=== PATIENT | male | born 1960 | race Caucasian/White ===

== ENCOUNTER → 2023-10-16 14:59 | Outpatient (AMB) | payer OTHER, SELFPAY ==
--- NOTE | 2023-10-16 15:01 | MHC.PC.OV ---
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 Training And Development Specialist Required: No Accompanied by: Self / Same As Patient Allergies bee pollen [BEE STINGS] Allergy (Intermediate, Verified 10/16/23 15:38) SWELLING Sulfa (Sulfonamide Antibiotics) [SULFA (SULFONAMIDE ANTIBIOTICS)] Allergy (Intermediate, Verified 10/16/23 15:38) rash Medication List - Last Reconciled 10/16/23 by KELSI SparrowP- aspirin 81 mg PO DAILY Tobacco use date assessed: 10/16/23 Dental Screening Dental Screen Date: 10/16/23 Did you have a dental visit in the last 12 months?: Yes Did you have a dental problem in the last 6 months where you did not have access to dental care?: No Was dental information given to patient?: Patient has dentist HPI HPI Comments History of Present Illness Details 63-year-old male with GERD, hyperlipidemia, vitamin-D deficiency, CAD, seasonal allergies Surgery: 2015 open heart surgery Health Maintenance: Specialists: GI Here today as a new patient Limited medical records Has had esophageal dilation x 2 in the past 5 years Was ff'd by [facility] in the past At times when he eats, he feels like it sits in the LUQ/eqpigastric area and then cannot eat for about 1 day as he doesnt know if its going to come up. He can then have diarrhea. In [address] [facility] for intestinal perf had colostomy which was reversed around 2254-1969. Taking TUMS and other OTC to help. At times feels so hungry in the morning that he vomits up bile. Denies any blood in his stool and or his vomit. Dry hacking cough that occurs in change in climates; always there first thing in the AM. Has not had any recent PFTs Does have seasonal allergies. Can not tolerate antihistamines as they make his cough worse as it dries his throat out. He reports that he had some type of valvular surgery and repair in 2014. I do not have the records on this. He was on a beta-hellen in the past but stopped during the pandemic as he ran out of refills. He is tachycardic today. He is asymptomatic. He thinks that he was on metoprolol ER 25 mg p.o. daily. He has not currently active with the order fulfillment specialist as his order fulfillment specialist retired however he is open to a referral. 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 1. Little interest or pleasure in doing things: not at all 2. Feeling down, depressed, or hopeless: not at all 3. Trouble falling or staying asleep, or sleeping too much: not at all 4. Feeling tired or having little energy: not at all 5. Poor appetite or overeating: not at all 6. Feeling bad about yourself - or that you are a failure or have let yourself or your family down: not at all 7. Trouble concentrating on things, such as reading the newspaper or watching television: not at all 8. Moving or speaking so slowly that other people could have noticed. Or the opposite - being so fidgety or restless that you have been moving around a lot more than usual: not at all 9. Thoughts that you would be better off or of hurting yourself in some way: not at all Total score: 0 Depression Screening Interpretation: Negative Depression Screening Done: Yes 03265 - PHQ-9 Billing: Yes Source: Developed by Drs. Juan M Cano, Jasmyn Crump, Ga Cabral and colleagues, with an educational cesar from [employer]. Thrive Questionnaire Date Thrive assessed: 10/16/23 I am a: Patient What is your living situation today?: I have a steady place to live Within the past 12 months, did the food you bought not last and you didn't have the money to get more?: Never true Within the past 12 months, did you worry whether your food would run out before you got money to buy more?: Never true Do you have trouble paying for medicines?: No Do you have trouble getting transportation to medical appointments?: No Do you have trouble paying your heating and electricity bill?: No Do you have trouble taking care of your child, family member or friend?: No Do you have trouble with day-to-day activities such as bathing, preparing meals, shopping, managing finances, etc.?: No Are you currently unemployed and looking for a job?: No Are you interested in more education?: No Please select the resources that you would like help with: None Currently or been in a relationship where the following occur: no concerns reported THRIVE Score: 0 AUDIT C Alcohol Use Questionnaire (AUDIT-C) 1. How often do you have a drink containing alcohol?: Never 3. How often do you have six or more drinks on one occasion?: Never Total Score: 0 Score Reviewed/Action Taken: Yes MATHEW-7 AMB Questionnaire MATHEW-7 Date MATHEW - 7 assessed: 10/16/23 Feeling nervous, anxious, or on edge: 0 = Not at all Not being able to stop or control worryin = Not at all Worrying too much about different things: 0 = Not at all Trouble relaxin = Not at all Being so restless that it is hard to sit still: 0 = Not at all Becoming easily annoyed or irritable: 0 = Not at all Feeling afraid as if something awful might happen: 0 = Not at all Total MATHEW-7 score (0-4 normal; 5-9 mild; 10-14 moderate; 15-21 severe): 0 Source: Developed by Drs. Juan M Cano, Jasmyn Crump, Ga Cabral and colleagues, with an educational cesar from [employer]. MATHEW-7 Assessment Billing MATHEW-7 Assessment Tool: MATHEW-7 Assessment 24717 Review of Systems Const All systems reviewed & are unremarkable except as noted in HPI and below Physical exam (Primary Care) Vital Signs: Last Vital Signs Temp 97.8 F 10/16/23 15:05 Pulse 119 H 10/16/23 15:05 Resp 14 10/16/23 15:05 BP 136/90 H 10/16/23 15:05 Pulse Ox 99 10/16/23 15:05 Oxygen Delivery Method Room Air 10/16/23 15:05 BMI result Body Mass Index 22.6 Tobacco/Smoking Status: Tobacco use Status Tobacco use date assessed 10/16/23 10/16/23 15:16 Patient Tobacco Use Status Never used Tobacco 10/16/23 15:16 e-Cigarette/Vaping Use Never Used 10/16/23 15:16 PHQ-9: PHQ-9 Score PHQ-9: Total score 0 10/16/23 15:20 Depression Screening Interpretation: Negative Thrive Assessment: Date of Thrive Assessment Date Thrive assessed 10/16/23 10/16/23 15:22 Currently or been in a relationship where the following occur: no concerns reported Const Other: Awake alert NAD Sclera and conjunctiva clear bilat Nares patent, turbinates edematous and pale on the left, TM intact and clear bilat MMM, pharynx WNL Tachycardic, normal rhythm LS CTAB , occasional dry hacking cough without respiratory distress Abdominal exam difficult as he is quite ticklish, normoactive bowel sounds, well-healed surgical incisions. Bilateral lower extremities no edema, hairless, decreased pedal pulses bilat Assessment and Plan Assessment & Plan (1) Esophageal achalasia: Comment: Refer back to [facility] for management. Code(s): K22.0 - Achalasia of cardia (2) Disorder of endocardium and heart valve: Comment: We will need to obtain the records for further information. He was previously followed by [facility]. I will refer him back there. I will restart him on his beta-hellen metoprolol succinate ER 25 mg p.o. daily. Code(s): I51.9 - Heart disease, unspecified; I38 - Endocarditis, valve unspecified (3) Vitamin D deficiency: Comment: Check labs. Not currently on any medications. Code(s): E55.9 - Vitamin D deficiency, unspecified (4) Screening for prostate cancer: Code(s): Z12.5 - Encounter for screening for malignant neoplasm of prostate (5) GERD (gastroesophageal reflux disease): Comment: Refer to GI. Check stool for H pylori. Code(s): K21.9 - Gastro-esophageal reflux disease without esophagitis Qualifiers: Esophagitis presence: without esophagitis Qualified Code(s): K21.9 - Gastro-esophageal reflux disease without esophagitis (6) Seasonal allergies: Comment: Likely the cause for his cough. Start Flonase. Can not tolerate antihistamines as they are too drying. Code(s): J30.2 - Other seasonal allergic rhinitis Plan: This note is constructed using voice recognition software. While every effort has been made to ensure accuracy in director commercial sales, still errors may have been included Sometimes, these errors may affect the content or meaning of the given sentence . Total time spent caring for the patient today was 50 minutes. This includes time spent before the visit reviewing the chart, time spent during the visit, and time spent after the visit on documentation Orders: Orders Hemoglobin A1c Today E55.9 - Vitamin D deficiency, unspecified, Z12.5 - Encounter for screening for malignant neoplasm of prostate Microalbumin, Random (w Creat) Today E55.9 - Vitamin D deficiency, unspecified, Z12.5 - Encounter for screening for malignant neoplasm of prostate TSH reflex Free T4 Today E55.9 - Vitamin D deficiency, unspecified, Z12.5 - Encounter for screening for malignant neoplasm of prostate Comprehensive [place]. Panel Fast Today E55.9 - Vitamin D deficiency, unspecified, Z12.5 - Encounter for screening for malignant neoplasm of prostate PSA, Ultra Sensitive Today E55.9 - Vitamin D deficiency, unspecified, Z12.5 - Encounter for screening for malignant neoplasm of prostate H pylori Ag Stool Today K21.9 - Gastro-esophageal reflux disease without esophagitis Lipase Today K21.9 - Gastro-esophageal reflux disease without esophagitis Vitamin D 1,25 dihydroxy Today E55.9 - Vitamin D deficiency, unspecified, Z12.5 - Encounter for screening for malignant neoplasm of prostate Lipid Panel Today E55.9 - Vitamin D deficiency, unspecified, Z12.5 - Encounter for screening for malignant neoplasm of prostate Amylase Today K21.9 - Gastro-esophageal reflux disease without esophagitis Referrals Gastroenterology Referral K22.0 - Achalasia of cardia Cardiology Referral I38 - Endocarditis, valve unspecified, I51.9 - Heart disease, unspecified Medications: New fluticasone propionate 50 mcg/actuation administer into each nostril 1 spray intranasal BID 16 grams 0RF metoprolol succinate ER 25 mg PO DAILY 90 tabs 0RF Discontinued pantoprazole Discontinued Reason: Patient no longer taking 40 mg PO DAILY 30 tabs 4RF Patient Instructions: The plan will be to obtain her records and review them. Please obtain fasting labs before her next visit. I would like to see you back in the office in about 2 weeks to follow up on the labs, tachycardia, and your cough. Please return to the office sooner should you need anything. Coding Level of Care Code New Pt Level 5 (92680) Diagnoses Esophageal achalasia K22.0 Disorder of endocardium and heart valve I51.9; I38 Vitamin D deficiency E55.9 Screening for prostate cancer Z12.5 Gastroesophageal reflux disease without esophagitis K21.9 Esophagitis presence: without esophagitis Seasonal allergies J30.2 Additional Codes MATHEW-7 Assessment Billing - MATHEW-7 Assessment Tool: MATHEW-7 Assessment 06255 ([id number])
[2023-10-16 15:05] VITALS: BP 136/90; PULSE 119; RESP 14; TEMP 36.6; O2SAT 99; BMI 22.6
== END ==
PROVIDERS: PCP Internal Medicine; Visit Provider Nurse Practitioner Family
DX: K22.0 Achalasia of cardia (principal); I51.9 Heart disease, unspecified; I38 Endocarditis, valve unspecified; E55.9 Vitamin D deficiency, unspecified; Z12.5 Encounter for screening for malignant neoplasm of prostate; K21.9 Gastro-esophageal reflux disease without esophagitis; J30.2 Other seasonal allergic rhinitis
CPT/HCPCS: 99205

== ENCOUNTER 2023-12-15 07:07 | Outpatient (REF) | payer OTHER, SELFPAY ==
[2023-12-15 10:37] LABS: Estimated Average Glucose 88 mg/dL; Hemoglobin A1c % 4.7 % (<6.0)
[2023-12-15 10:40] LABS: Alanine Aminotransferase 26 U/L (0-40); Alkaline Phosphatase 64 U/L (39-117); Amylase 41 U/L (28-100); Anion Gap 12 (12-20); Aspartate Amino Transferase 28 U/L (5-37); Bilirubin Total 0.8 mg/dL (0.0-1.0); Blood Urea Nitrogen 5 mg/dL (9-16); Calcium 9.3 mg/dL (8.4-10.2); Carbon Dioxide 26 mmol/L (22-29); Chloride 98 mmol/L (96-108); Cholesterol 166 mg/dL (<200); Estimated Glomerular Filt Rate > 60; Glucose Fasting 120 mg/dL (60-99); HDL Cholesterol 60 mg/dL (>40); LDL Cholesterol Calculated 80 mg/dL (<100); Lipase 19 U/L (8-78); Sodium 132 mmol/L (135-145); Total Protein 6.7 g/dL (6.5-8.0); Triglycerides 133 mg/dL (<150)
[2023-12-15 11:16] LABS: Creatinine Urine 31.21 mg/dL; Microalbumin Urine < 5.0 mg/L
[2023-12-19 10:10] LABS: VITAMIN D (1,25 OH) D3 43 pg/mL; Vit D (1,25-Dihydroxy) Total 43 pg/mL (18-72); Vitamin D (1,25 OH) D2 <8 pg/mL
[2023-12-23 18:42] LABS: PSA, Ultra Sensitive 0.38 ng/mL
== END 2023-12-15 07:08 | disposition home or self-care (01) ==
LOC: HO.HMGCLDS 07:07
PROVIDERS: PCP Nurse Practitioner Family; Visit Provider Nurse Practitioner Family
DX: E55.9 Vitamin D deficiency, unspecified (principal); Z12.5 Encounter for screening for malignant neoplasm of prostate; K21.9 Gastro-esophageal reflux disease without esophagitis; Z13.1 Encounter for screening for diabetes mellitus
CPT/HCPCS: 36415; 80053; 80061; 82043; 82150; 82570; 82652; 83036; 83690; 84153; 84443

== ENCOUNTER 2024-01-14 10:48 | Day surgery (SDC) | payer OTHER, SELFPAY ==
[2024-01-12 15:42] VITALS: BMI 22.0
--- NOTE | 2024-01-13 09:24 | HO.ANESPROP2 ---
Documented by User: Jenny Kothari NP 01/13/24 09:30 HPI - Anesthesia Eval Consult details Narrative: 63yo M for Upper Endoscopy and Colonoscopy s/p MVR 2014 hx afib/flutter without cardiology f/u since ~ 2019. Recent PCP eval restarted b-hellen for tachy, but otherwise pt asymptomatic PMFSH Active Problems Active Problems: All Active Problems Hyponatremia (Acute) Seasonal allergies (Acute) GERD (gastroesophageal reflux disease) (Acute) Screening for prostate cancer (Acute) Vitamin D deficiency (Acute) Disorder of endocardium and heart valve (Acute) Esophageal achalasia (Acute) Past Medical History Medical History History of diverticulitis GERD (gastroesophageal reflux disease) Achalasia of cardia Seasonal allergies History of tachycardia Cough PND (post-nasal drip) Hx of valvular heart disease GI disease Family History Family History Father Diabetes Mother Thyroid disease Surgical History Surgical History History of esophagogastroduodenoscopy (EGD) Hx of colonoscopy History of colostomy reversal (~2008) History of colon surgery History of open heart surgery Social History Social History Housing: House Are you a primary care director rn to a significant other at home: No Do you presently have visiting nurse or other home services: No Patient Tobacco Use Status: Never used Tobacco e-Cigarette/Vaping Use: Never Used Use of substances other than those prescribed or required for medical reasons: No Have you been hit, kicked, punched, or otherwise hurt by someone within the past year? 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[employer] Cognitive needs: No Hearing needs: No Vision needs: No Meds Allergies Allergy/AdvReac Type Severity Reaction Status Date / Time bee pollen [BEE STINGS] Allergy Intermediate SWELLING, Verified 01/14/24 11:18 rash Sulfa (Sulfonamide Allergy Intermediate rash Verified 01/14/24 11:18 Antibiotics) [SULFA (SULFONAMIDE ANTIBIOTICS)] Home Medications ?Medication ?Instructions ?Recorded ?Confirmed ?Last Taken ?Type aspirin 81 mg capsule 81 mg PO DAILY 10/16/23 01/14/24 01/13/24 History Exam Height,Weight and Vital Signs: Height 5 ft 8 in Weight 65.771 kg Pertinent Lab Results Pertinent Lab Results: Laboratory Tests 06/29/19 12/15/23 09:58 07:15 WBC 4.4 L Hgb 14.3 Hct 40.7 L Plt Count 217 Sodium 132 L Potassium 4.0 Chloride 98 Carbon Dioxide 26 BUN 5 L Creatinine 0.81 Assessment and Plan Assessment Anesthesia Assessment: Chart Reviewed Documented by User: Maryellen Fuentes MD 01/14/24 14:06 PMFSH Past Medical History Medical History History of diverticulitis GERD (gastroesophageal reflux disease) Achalasia of cardia Seasonal allergies History of tachycardia Cough PND (post-nasal drip) Hx of valvular heart disease GI disease Family History Family History Father Diabetes Mother Thyroid disease Family history of problems with anesthesia: No Surgical History Surgical History History of esophagogastroduodenoscopy (EGD) Hx of colonoscopy History of colostomy reversal (~2008) History of colon surgery History of open heart surgery History of Problems with Anesthesia: No Social History Social History Housing: House Are you a primary care director rn to a significant other at home: No Do you presently have visiting nurse or other home services: No Patient Tobacco Use Status: Never used Tobacco e-Cigarette/Vaping Use: Never Used Use of substances other than those prescribed or required for medical reasons: No Have you been hit, kicked, punched, or otherwise hurt by someone within the past year? 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 needs: No Hearing needs: No Vision needs: No Meds Allergies Allergy/AdvReac Type Severity Reaction Status Date / Time bee pollen [BEE STINGS] Allergy Intermediate SWELLING, Verified 01/14/24 11:18 rash Sulfa (Sulfonamide Allergy Intermediate rash Verified 01/14/24 11:18 Antibiotics) [SULFA (SULFONAMIDE ANTIBIOTICS)] Home Medications ?Medication ?Instructions ?Recorded ?Confirmed ?Last Taken ?Type aspirin 81 mg capsule 81 mg PO DAILY 10/16/23 01/14/24 01/13/24 History Exam Airway Mallampati Class: II TM Dist: >3cm Neck ROM: Limited Heart: afib Lungs: cta Assessment and Plan Assessment Anesthesia Assessment: Anesthesia Plan Discussed Final Anesthetic Review Family History of Problems with Anesthesia: No History of Problems with Anesthesia: No NPO: Yes ASA Class: III Final Preanesthetic Review: No Changes in Pt Med Stat, Meds/Allgs Chart Reviewed, Consent Obtained/Reviewed and Anes Risks/Benef Reviewed Patient Risk: Intermediate Procedure Risk: Low Anesthetic Plan Anesthetic Plan: MAC: Disposition: Standard PACU
[2024-01-14 11:26] VITALS: BMI 22.0
[2024-01-14 11:52] VITALS: BP 133/98; PULSE 100; RESP 14; TEMP 36.3; O2SAT 98
[2024-01-14] MEDS: Lactated Ringers 1,000 ML 100 ML IVCONT (11:55)
--- NOTE | 2024-01-14 13:56 | MHC.SHP ---
Pre-Procedural Eval Section A - 24 Hr Update-Section A only Date of Service: 01/14/24 The patient is an INPATIENT: No Changes since office visit: No Cold of Flu in the past 2 weeks, No New Medical Problems, No Changes in Medication and No Patient answered all questions The patient has been examined within 24 hours of the surgical procedure. The History & Physical has been completed within 30 days and I have reviewed it.: Yes Section B - Complete if H&P > 30 days Chief Complaint: dysphagia,diarrhea,lower quadrant pain Allergies: Allergies Allergy/AdvReac Type Severity Reaction Status Date / Time bee pollen [BEE STINGS] Allergy Intermediate SWELLING, Verified 01/14/24 11:18 rash Sulfa (Sulfonamide Allergy Intermediate rash Verified 01/14/24 11:18 Antibiotics) [SULFA (SULFONAMIDE ANTIBIOTICS)] Plan I have reviewed the history and physical and performed a pertinent physical examination on my patient. No changes have occurred unless specified. Time Spent With Patient Time: Total time managing care of this patient today ____ minutes.
[2024-01-14 15:00] VITALS: BP 83/51; PULSE 81; RESP 18; TEMP 36.2; O2SAT 98
[2024-01-14 15:05] VITALS: BP 121/69; PULSE 88; RESP 15; O2SAT 99
[2024-01-14 15:10] VITALS: BP 143/77; PULSE 86; RESP 14; O2SAT 99
[2024-01-14 15:16] VITALS: BP 124/78; PULSE 85; RESP 16; TEMP 36.3; O2SAT 99
--- NOTE | 2024-01-14 15:23 | OP_ITS ---
DATE OF SERVICE: 01/14/2024 SURGEON: Maulik Portillo MD INDICATIONS: 1. Dysphagia. 2. Diarrhea. PREOPERATIVE DIAGNOSIS: POSTOPERATIVE DIAGNOSIS: PROCEDURE PERFORMED: 1. Upper endoscopy with biopsy. 2. Colonoscopy to the terminal ileum with biopsy. ESTIMATED BLOOD LOSS: COMPLICATIONS: ANESTHESIA: Monitored anesthesia care. ASSISTANTS: SPECIMENS: DESCRIPTION OF PROCEDURE: A history and physical was performed. The risks and benefits of the procedure were explained to the patient and informed consent was obtained. The patient was placed in the left lateral decubitus position. The Olympus video gastroscope was introduced into the esophagus, stomach, and duodenum. Examination was performed and the scope was removed. He was repositioned for colonoscopy. A digital rectal exam was performed and was found to be normal. The Olympus pediatric video colonoscope was introduced into the rectum and advanced to the cecum. The cecum was identified by transillumination, palpation, and identification of ileocecal valve. Examination was performed and the scope was removed. He tolerated the procedure well and was returned to recovery area in stable condition. FINDINGS: Upper endoscopy, esophagus: The esophagus appeared to show normal mucosa. The EG junction was present at about 39 cm from the gums. No stricture was identified. There was a small diverticulum at the level of the EG junction. The scope easily passed into the stomach. Biopsies were obtained from the EG junction and midesophagus. Stomach: The stomach showed scattered erythema, mainly in the antrum consistent with gastritis. Antral biopsies were obtained. Duodenum: The bulb and 2nd portion were normal. Duodenal biopsies were obtained from the 2nd portion. Colonoscopy: The terminal ileum was normal. Visualized colonic mucosa was normal. Two polyps were identified and removed with biopsy forceps. Both measured less than 5 mm. The 1st was located in the ascending colon. The 2nd was located at about 15 cm in the area of the anastomosis from his prior surgery. There was some stool in the right colon that was liquid, limiting the sensitivity examination and short-term followup of 2 to 3 years, may be appropriate as small polyps in the right colon may have been missed. Random biopsies were obtained from the sigmoid at about 20 cm. The anastomosis was widely patent. Retroflexed examination showed some small internal hemorrhoids. IMPRESSION: 1. Gastritis. 2. Colon polyps. RECOMMENDATION: Follow up the biopsy results. MD TOI Longoria/HILLARY / [id number]
== END 2024-01-14 15:40 | disposition home or self-care (01) ==
PROVIDERS: PCP Nurse Practitioner Family; Visit Provider Internal Medicine Gastroenterology
PROC: (CPT 45380; principal; 2024-01-14 14:00)
DX: R19.7 Diarrhea, unspecified (principal); R10.32 Left lower quadrant pain; Z98.0 Intestinal bypass and anastomosis status; D12.2 Benign neoplasm of ascending colon; D12.7 Benign neoplasm of rectosigmoid junction; K64.8 Other hemorrhoids; R13.19 Other dysphagia; K21.9 Gastro-esophageal reflux disease without esophagitis; K20.80 Other esophagitis without bleeding; K29.80 Duodenitis without bleeding; K29.70 Gastritis, unspecified, without bleeding; K22.5 Diverticulum of esophagus, acquired; Z95.2 Presence of prosthetic heart valve; Z79.82 Long term (current) use of aspirin; Z79.899 Other long term (current) drug therapy; Z88.2 Allergy status to sulfonamides; Z98.890 Other specified postprocedural states
CPT/HCPCS: 45380; 43239; 88305; 88313; 88342; J2704

== ENCOUNTER 2024-01-28 12:44 | Outpatient (REF) | payer OTHER, SELFPAY ==
[2024-01-28 16:14] LABS: Anion Gap 10 (12-20); Carbon Dioxide 30 mmol/L (22-29); Chloride 95 mmol/L (96-108); Sodium 131 mmol/L (135-145)
== END 2024-01-28 12:45 | disposition home or self-care (01) ==
LOC: HO.HMGCLDS 12:44
PROVIDERS: PCP Nurse Practitioner Family; Visit Provider Nurse Practitioner Family
DX: E87.1 Hypo-osmolality and hyponatremia (principal)
CPT/HCPCS: 36415; 80051

== ENCOUNTER 2025-01-05 11:54 | Outpatient (AMB) | payer OTHER, SELFPAY ==
--- OUTSIDE RECORDS SUMMARY | 2024-01-14 09:00 | XMS_ITS ---
Author Organization [facility] Address [address] [place] [address] Care Team Providers Care Specification Consultant Name Role Phone Char Chase Primary Care Provider Maulik Kaur Jr REASON FOR VISIT dysphagia,diarrhea, LLQ pain Problems Problem Type SNOMED Code ICD Code Onset Dates Problem Status W/U Status Risk Notes Problem Gastritis (3935007) Gastritis (K29.70) Active confirmed Encounters Encounter Location Date Provider Diagnosis [facility] Outpatient [address] [place] [id number] 01/14/2024 Maulik Portillo Jr Gastritis K29.70 ; Colon polyps K63.5 ; Diarrhea R19.7 and Other dysphagia R13.19 Assessments Encounter Date Diagnosis (ICD Code) Assessment Notes Treatment Notes Treatment Clinical Notes Section Notes 01/14/2024 Gastritis (ICD-10 - K29.70) 01/14/2024 Colon polyps (ICD-10 - K63.5) 01/14/2024 Diarrhea (ICD-10 - R19.7) 01/14/2024 Other dysphagia (ICD-10 - R13.19) Plan Of Treatment Next Appt Details Provider Name:Maulik ponce Jr, 02/17/2025 03:15:00 PM, [address], [address], [place], [address], Progress Notes * RAHEEM SALAMANCADOB:1960 (64 yo M)Acc No.[id number]:01/14/2024 EGD and COL/MAC Patient: RAHEEM BRANCH Provider: Brendon Portillo MD :1960 A ge:63 Y S ex:Male Date:01/14/2024 Address:[address] [place] [address], [id number] Pcp:Char Chase Subjective: * Chief Complaints: * 1 . dysphagia,diarrhea, LLQ pain. * Medical History: Objective: * Vitals: Assessment: * Assessment: 1. G astritis - K29.70 (Primary) 2 . C olon polyps - K63.5 3 . D iarrhea - R19.7 4 . O ther dysphagia - R13.19 Plan: * Treatment: * Procedure Codes: 4 5380 COLONOSCOPY AND BIOPSY, [address]013 UPPER GI ENDOSCOPY, BIOPSY * * The named appointment provid er may or may not be the originator of this progress note, and it is not deemed complete until electronically signed by the appointment provider. Sign off status: Pending * Provider: Brendon Portillo MD Date: 01/14/2024 Generated for Holly chappell/Yokasta/Allynitting on: 01/05/2025 01:04 PM EDT
--- NOTE | 2025-01-05 12:03 | MHC.PC.OV ---
Vital Signs 01/05/25 12:09 Height 5 ft 9 in Weight 158 lb BMI 23.3 BP 118/68 Blood Pressure Location Rt brachial Position Sitting Respiration 12 Pulse 70 Pulse Source Pulse Oximeter Temp 97.1 F Temp Source Oral Pulse Oximetry (%) 99 Oxygen Delivery Method Room Air Intake Visit Reasons: Annual PE Intake Note: CPE. Bath Steward Required: No Allergies bee pollen (BEE STINGS) Allergy (Intermediate, Verified 01/05/25 12:26) SWELLING, rash Sulfa (Sulfonamide Antibiotics) (SULFA (SULFONAMIDE ANTIBIOTICS)) Allergy (Intermediate, Verified 01/05/25 12:26) rash Medication List - Last Reconciled 01/05/25 by TANVIR Sparrow- aspirin 81 mg PO DAILY fluticasone propionate 50 mcg/actuation 1 spray intranasal BID metoprolol succinate ER 25 mg PO DAILY omeprazole 20 mg PO DAILY Tobacco use date assessed: 10/16/23 Dental Screening Dental Screen Date: 01/05/25 Did you have a dental visit in the last 12 months?: Yes Did you have a dental problem in the last 6 months where you did not have access to dental care?: No Was dental information given to patient?: Patient has dentist HPI HPI Comments History of Present Illness Details 64-year-old male with GERD, hyperlipidemia, vitamin-D deficiency, CAD, seasonal allergies, gastritis, colonic polyps Surgery: 2015 open heart surgery, colon surgery Health Maintenance: colon/egd 01/15/24 active esophagitis, tubular adenoma, Chronic inactive duodenitis Dr Portillo Tdap declined Wears Cheaters, not UTD on eye exam; declined referral today Specialists: GI Cards Limited medical records - awaiting previous PCP and Cards records History of Present Illness - The patient is a 64-year-old male presenting with a complete physical examination and ongoing gastrointestinal issues. - Lifetime history of gastrointestinal issues; presented initially as a child. - Recent symptoms peak in the mornings with sensation of fullness, gagging, and repeated coughing. - Upper and lower gastrointestinal workup show esophagitis and duodenal inflammation. - Managed symptoms with omeprazole; no current reflux or heartburn. - Environmental changes provoke cough. - Drafter Landscape supports ongoing treatment with omeprazole due to upper GI findings. - Appt this month w/ GI - No current appt w/ Cards. Needs new referral. Cont on BB Review of Systems - Gastrointestinal: Reports ongoing gastrointestinal issues, including diarrhea post-ingestion and esophagitis symptoms. Denies current heartburn. - Respiratory: Reports morning cough and gagging; cough with environmental changes. - General: Denies major changes, notes moderate weight gain observed. Physical Exam General: Well developed, well nourished, in no acute distress. Appears stated age. Head: Normocephalic, atraumatic. Eyes: Pupils are equal, round and reactive to light and accommodation. Conjunctivae are clear. Vision grossly normal. Ears: TMs clear AU, EACS WNL Nose: Patent, without discharge. Neck: Supple, no adenopathy or thyromegaly. Breast: Edu on SBE Lungs: Clear to auscultation bilaterally. No rales, rhonchi or wheeze noted. Good air flow in all egan. Heart: Regular rate and rhythm. No murmurs, click, rubs or gallops are noted. Abdomen: Bowel sounds present in all quadrants. The abdomen is soft, nontender, with no masses or organomegaly noted. well-healed surgical incisions. : Deferred. Reviewed JORDON & recommendations Pulses: Peripheral pulses are equal and palpable bilaterally. Bilateral lower extremities no edema, hairless, decreased pedal pulses bilat Extremities: No clubbing, cyanosis nor edema is noted. Neurologic: Gait and station normal. Cranial Nerves 2-12 intact. Motor strength grossly symmetrical and intact. No sensory loss. Balance normal. Skin: No rashes, ulcers, or lesions noted. Turgor is good. Skin color is good. Hair and nails are without abnormalities. Psych: Normal eye contact, affect and mood appropriate, and normal interactions. Patient is alert and appropriate to context. Assessment and Plan 1. Gastroesophageal Reflux Disease (GERD) w/ esophagitis. - Continue omeprazole & fu with GI 2. Coronary Artery Disease (CAD) - Manage with aspirin and metoprolol. - refer to [facility] Cards - asked to get old cards records Declined Tdap Labs ordered RTO 1 year CPE sooner prn Consent Patient was informed and verbally consented to the use of an ambient scribe for clinic note documentation during this visit. An additional 20 minutes was spent addressing the problem(s) noted at todays visit. This includes time spent before the visit reviewing the chart, time spent during the visit, and time spent after the visit on documentation reviewing laboratory results, diagnostic imaging, medications, performing a medically necessary evaluation, counseling on diagnoses, care coordination, ordering appropriate tests, ordering appropriate medications, review of tests performed by other providers, reporting test results with the patient, communication with other healthcare providers. [facility] Medical History (Updated 01/05/25 @ 12:51 by Char Chase [facility]) Achalasia of cardia Cough GERD (gastroesophageal reflux disease) GI disease History of diverticulitis History of tachycardia Hx of valvular heart disease PND (post-nasal drip) Seasonal allergies Surgical History (Updated 01/05/25 @ 12:27 by Char Chase [facility]) History of colon surgery History of colostomy reversal (~2008) History of esophagogastroduodenoscopy (EGD) History of open heart surgery Hx of colonoscopy (~12/2023) Family History Father Diabetes Mother Thyroid disease Social History Housing: House Are you a primary home health care provider to a significant other at home: No Do you presently have visiting nurse or other home services: No Patient Tobacco Use Status: Never used Tobacco e-Cigarette/Vaping Use: Never Used service: No Current occupational status: employed 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 1. Little interest or pleasure in doing things: not at all 2. Feeling down, depressed, or hopeless: not at all 3. Trouble falling or staying asleep, or sleeping too much: not at all 4. Feeling tired or having little energy: not at all 5. Poor appetite or overeating: not at all 6. Feeling bad about yourself - or that you are a failure or have let yourself or your family down: not at all 7. Trouble concentrating on things, such as reading the newspaper or watching television: not at all 8. Moving or speaking so slowly that other people could have noticed. Or the opposite - being so fidgety or restless that you have been moving around a lot more than usual: not at all 9. Thoughts that you would be better off or of hurting yourself in some way: not at all Total score: 0 Depression Screening Interpretation: Negative Depression Screening Done: Yes 70030 - PHQ-9 Billing: Yes Source: Developed by Drs. Juan M Cano, Jasmyn Crump, Ga Cabral and colleagues, with an educational cesar from [employer]. Thrive Questionnaire Date Thrive assessed: 01/05/25 I am a: Patient What is your living situation today?: I have a steady place to live Within the past 12 months, did the food you bought not last and you didn't have the money to get more?: I choose not to answer this question Within the past 12 months, did you worry whether your food would run out before you got money to buy more?: I choose not to answer this question Do you have trouble paying for medicines?: I choose not to answer this question Do you have trouble getting transportation to medical appointments?: I choose not to answer this question Do you have trouble paying your heating and electricity bill?: I choose not to answer this question Do you have trouble taking care of your child, family member or friend?: I choose not to answer this question Do you have trouble with day-to-day activities such as bathing, preparing meals, shopping, managing finances, etc.?: I choose not to answer this question Are you currently unemployed and looking for a job?: I choose not to answer this question Are you interested in more education?: I choose not to answer this question Please select the resources that you would like help with: None Currently or been in a relationship where the following occur: I choose not to answer THRIVE Score: 0 AUDIT C Alcohol Use Questionnaire (AUDIT-C) 1. How often do you have a drink containing alcohol?: Never 3. How often do you have six or more drinks on one occasion?: Never Total Score: 0 Score Reviewed/Action Taken: Yes MATHEW-7 AMB Questionnaire MATHEW-7 Date MATHEW - 7 assessed: 01/05/25 Feeling nervous, anxious, or on edge: 0 = Not at all Not being able to stop or control worryin = Not at all Worrying too much about different things: 0 = Not at all Trouble relaxin = Not at all Being so restless that it is hard to sit still: 0 = Not at all Becoming easily annoyed or irritable: 0 = Not at all Feeling afraid as if something awful might happen: 0 = Not at all Total MATHEW-7 score (0-4 normal; 5-9 mild; 10-14 moderate; 15-21 severe): 0 Source: Developed by Drs. Juan M Cano, Jasmyn Crump, Ga Cabral and colleagues, with an educational cesar from [employer]. MATHEW-7 Assessment Billing MATHEW-7 Assessment Tool: MATHEW-7 Assessment 69859 Physical exam (Primary Care) Vital Signs: Last Vital Signs Temp 97.1 F 01/05/25 12:09 Pulse 70 01/05/25 12:09 Resp 12 01/05/25 12:09 BP 118/68 01/05/25 12:09 Pulse Ox 99 01/05/25 12:09 Oxygen Delivery Method Room Air 01/05/25 12:09 BMI result Body Mass Index 23.3 Tobacco/Smoking Status: Tobacco use Status Tobacco use date assessed 10/16/23 01/05/25 12:06 Patient Tobacco Use Status Never used Tobacco 01/05/25 12:06 e-Cigarette/Vaping Use Never Used 01/05/25 12:06 PHQ-9: PHQ-9 Score PHQ-9: Total score 0 01/05/25 12:06 Depression Screening Interpretation: Negative Thrive Assessment: Date of Thrive Assessment Date Thrive assessed 01/05/25 01/05/25 12:06 Currently or been in a relationship where the following occur: I choose not to answer Coding Level of Care Code Est Pt Level 3 (43384) Est Pt Prev Care 40-64y(04068) Diagnoses Encounter for general adult medical examination without abnormal findings Z00.00 Disorder of endocardium and heart valve I51.9; I38 Vitamin D deficiency E55.9 Seasonal allergies J30.2 Esophageal achalasia K22.0 Gastroesophageal reflux disease without esophagitis K21.9 Esophagitis presence: without esophagitis Tetanus, diphtheria, and acellular pertussis (Tdap) vaccination declined Z28.21 Laboratory exam ordered as part of routine general medical examination Z00.00 Additional Codes MATHEW-7 Assessment Billing - MATHEW-7 Assessment Tool: MATHEW-7 Assessment 24907 ([id number]) PHQ-9 - 82979 - PHQ-9 Billing: Yes ([id number]) Assessment & Plan Assessment & Plan (1) Encounter for general adult medical examination without abnormal findings: Onset Date: ~01/05/25 Code(s): Z00. - Encounter for general adult medical examination without abnormal findings Category: Medical (2) Disorder of endocardium and heart valve: Comment: We will need to obtain the records for further information. He was previously followed by [facility]. I will refer him back there; on beta-hellen metoprolol succinate ER 25 mg p.o. daily. Code(s): I51.9 - Heart disease, unspecified; I38 - Endocarditis, valve unspecified Category: Medical (3) Vitamin D deficiency: Comment: Check labs. Not currently on any medications. Code(s): E55.9 - Vitamin D deficiency, unspecified Category: Medical (4) Seasonal allergies: Comment: Taking zyrtec QOD; flonase too drying. Likely the cause for his cough. Code(s): J30.2 - Other seasonal allergic rhinitis Category: Medical (5) Esophageal achalasia: Comment: [facility] for management. Code(s): K22.0 - Achalasia of cardia Category: Medical (6) GERD (gastroesophageal reflux disease): Comment: GI Code(s): K21.9 - Gastro-esophageal reflux disease without esophagitis Category: Medical Qualifiers: Esophagitis presence: without esophagitis Qualified Code(s): K21.9 - Gastro-esophageal reflux disease without esophagitis (7) Tetanus, diphtheria, and acellular pertussis (Tdap) vaccination declined: Code(s): Z28.21 - Immunization not carried out because of patient refusal Category: Medical (8) Laboratory exam ordered as part of routine general medical examination: Code(s): Z00.00 - Encounter for general adult medical examination without abnormal findings Category: Medical Plan . Orders: Orders Complete Blood Count no Diff Today Z00.00 - Encounter for general adult medical examination without abnormal findings TSH reflex Free T4 Today Z00.00 - Encounter for general adult medical examination without abnormal findings Vitamin D 25-OH Total Today Z00.00 - Encounter for general adult medical examination without abnormal findings Comprehensive Met. Panel Today Z00.00 - Encounter for general adult medical examination without abnormal findings Lipid Panel Today Z00.00 - Encounter for general adult medical examination without abnormal findings Microalbumin, Random (w Creat) Today Z00.00 - Encounter for general adult medical examination without abnormal findings Prostate Specific Antigen Scr Today Z00.00 - Encounter for general adult medical examination without abnormal findings Vitamin B12 and Folate Today Z00.00 - Encounter for general adult medical examination without abnormal findings Hemoglobin A1c Today Z00.00 - Encounter for general adult medical examination without abnormal findings Referrals Cardiology Referral I38 - Endocarditis, valve unspecified, I51.9 - Heart disease, unspecified Patient Instructions: Health screenings for men You should visit your health care provider regularly, even if you feel healthy. The purpose of these visits is to: Screen for medical issues Assess your risk for future medical problems Encourage a healthy lifestyle Update vaccinations and other preventive care services Help you get to know your provider in case of an illness Information Even if you feel fine, you should still see your provider for regular checkups. These visits can help you avoid problems in the future. For example, the only way to find out if you have high blood pressure is to have it checked regularly. High blood sugar and high cholesterol level also may not have any symptoms in the early stages. Simple blood tests can check for these conditions. There are specific times when you should see your provider or receive specific health screenings. The [place] Preventive Services Task Force publishes a list of recommended screenings. Below are screening guidelines for men ages 40 to 64. BLOOD PRESSURE SCREENING Have your blood pressure checked at least once every year. Watch for blood pressure screenings in your area. Ask your provider if you can stop in to have your blood pressure checked. Ask your provider if you need your blood pressure checked more often if: You have diabetes, heart disease, kidney problems, or are overweight or have certain other health conditions You have a first-degree relative with high blood pressure You are Black Your blood pressure top number is from 120 to 129 mm Hg, or the bottom number is from 70 to 79 mm Hg If the top number is 130 mm Hg or greater or the bottom number is 80 mm Hg or greater, this is considered stage 1 hypertension. Schedule an appointment with your provider to learn how you can lower your blood pressure. Effects of age on blood pressure CHOLESTEROL SCREENING Cholesterol screening should begin at age 35 for men with no known risk factors for coronary heart disease. Repeat cholesterol screening should take place: Every 5 years for men with normal cholesterol levels More often if changes occur in lifestyle (including weight gain and diet) More often if you have diabetes, heart disease, kidney problems, or certain other conditions COLORECTAL CANCER SCREENING If you are under age 45, talk to your provider about getting screened. You may need to be screened if you have a strong family history of colon cancer or polyps. Screening may also be considered if you have risk factors such as a history of inflammatory bowel disease or polyps. If you are age 45 to 75, you should be screened for colorectal cancer. There are several screening tests available: A stool-based fecal occult blood (gFOBT) or fecal immunochemical test (FIT) every year A stool sDNA test every 1 to 3 years Flexible sigmoidoscopy every 5 years or every 10 years with stool testing FIT done every year CT colonography (virtual colonoscopy) every 5 years Colonoscopy every 10 years You may need a colonoscopy more often if you have risk factors for colorectal cancer, such as: Ulcerative colitis A personal or family history of colorectal cancer A history of growths in your colon called adenomatous polyps DENTAL EXAM Go to the dentist once or twice every year for an exam and cleaning. Your dentist will evaluate if you have a need for more frequent visits. DIABETES SCREENING All adults who do not have risk factors for diabetes should be screened starting at age 35 and repeated every 3 years. If you have other risk factors for diabetes, such as a first degree relative with diabetes, overweight or obesity, high blood pressure, prediabetes, or a history of heart disease, you may be tested more often. If you are overweight and have other risk factors, such as high blood pressure and are planning to become , screening is recommended. EYE EXAM Have an eye exam every 2 to 4 years ages 40 to 54 and every 1 to 3 years ages 55 to 64. Your provider may recommend more frequent eye exams if you have vision problems or glaucoma risk. Have an eye exam that includes an examination of your retina (back of your eye) at least every year if you have diabetes. IMMUNIZATIONS Commonly needed vaccines include: Flu shot: get one every year COVID-19 vaccine: ask your provider what is best for you Tetanus-diphtheria and acellular pertussis (Tdap) vaccine: have as one of your tetanus-diphtheria vaccines if you did not receive it as an adolescent Tetanus-diphtheria: have a booster (or Tdap) every 10 years Varicella vaccine: receive 2 doses if you never had chickenpox or the varicella vaccine and were born in 1980 or after Hepatitis B vaccine: receive 2, 3, or 4 doses, depending on your exact circumstances, if you did not receive these as a child or adolescent, until age 59 Shingles (herpes zoster) vaccine: at or after age 50 Ask your provider if you should receive other immunizations, especially if you have certain medical conditions, such as diabetes or are at increased risk for some diseases such as pneumonia. INFECTIOUS DISEASE SCREENING Screening for hepatitis C: all adults ages 18 to 79 should get a one-time test for hepatitis C. Screening for human immunodeficiency virus (HIV): all people ages 15 to 65 should get a one-time test for HIV. Depending on your lifestyle and medical history, you may need to be screened for infections such as syphilis, chlamydia, and other infections. LUNG CANCER SCREENING You should have an annual screening for lung cancer with low-dose computed tomography (LDCT) if: You are age 50 to 80 years AND You have a 20 pack-year smoking history AND You currently smoke or have quit within the past 15 years OSTEOPOROSIS SCREENING If you are age 50 to 64 and have risk factors for osteoporosis, you should discuss screening with your provider. Risk factors can include long-term steroid use, low body weight, smoking, heavy alcohol use, having a fracture after age 50, or a family history of hip fracture or osteoporosis. Osteoporosis PHYSICAL EXAM All adults should visit their provider from time to time, even if they are healthy. The purpose of these visits is to: Screen for diseases Assess risk of future medical problems Encourage a healthy lifestyle Update vaccinations and other preventive care services Maintain a relationship with a provider in case of an illness Your height, weight, and body mass index (BMI) should be checked at every exam. During your exam, your provider may ask you about: Depression and anxiety Diet and exercise Alcohol and tobacco use Safety, such as use of seat belts and smoke detectors Your medicines and risk for interactions PROSTATE CANCER SCREENING If you're 55 through 69 years old, before having the test, talk to your provider about the pros and cons of having a PSA test. Ask about: Whether screening decreases your chance of dying from prostate cancer. Whether there is any harm from prostate cancer screening, such as side effects from testing or overtreatment of cancer when discovered. Whether you have a higher risk of prostate cancer than others. If you are age 55 or younger, screening is not generally recommended. You should talk with your provider about if you have a higher risk for prostate cancer. Risk factors include: Having a family history of prostate cancer (especially a brother or father) Being If you choose to be tested, the PSA blood test is repeated over time (yearly or less often), though the best frequency is not known. Prostate examinations are no longer routinely done on men with no symptoms. Prostate cancer SKIN EXAM Your provider may check your skin for signs of skin cancer, especially if you're at high risk. People at high risk include those who have had skin cancer before, have close relatives with skin cancer, or have a weakened immune system. TESTICULAR EXAM The [place] Preventive Services Task Force (USPSTF) now recommends against performing testicular self-exams. Doing testicular self-exams has been shown to have little to no benefit.
[2025-01-05 12:09] VITALS: BP 118/68; PULSE 70; RESP 12; TEMP 36.2; O2SAT 99; BMI 23.3
--- OUTSIDE RECORDS SUMMARY | 2025-01-05 13:05 | XMS_ITS | Clinical Summary ---
Author Organization [facility] Address [address] [place] [address] Phone Care Team Providers Care Precinct I Police Sergeant Name Role Phone Jhonatan Owusu MD Primary Care Provider [phone] Surgical History Surgery Date Site/Laterality Comments OTHER SURGICAL HISTORY 2014 PROCEDURE: HISTORY OTHER; COMMENT: MITRAL VALVE REPAIR WITH MAZE OTHER SURGICAL HISTORY 12/2009 PROCEDURE: HISTORY OTHER; COMMENT: VERTEBROPLASTY OTHER SURGICAL HISTORY 2007 PROCEDURE: HISTORY OTHER; COMMENT: COLOSTOMY Medical History Medical History Date Comments Seizure (CMS/HCC V24, CMS/HCC V28) DX:Seizure ([facility]) Diverticulitis DX:Diverticuliti s GERD without esophagitis DX:GERD without esophagitis Anemia DX:Anemia Age-related osteoporosis wit hout current pathological fracture DX:Age-related osteoporosis without current pathological fracture Disorder of lipoprotein meta bolism, unspecified DX:Disorder of lipoprotein m etabolism, unspecified Social History Tobacco Use Types Packs/Day Years Used Date Smoking Tobacco: Never Assessed Sex and Gender Information Value Date Recorded Sex Assigned at Not on file Legal Sex Male 10:10 PM EST Gender Identity Not on file Sexual Orientation Not on file Obstetrics History Plan of Treatment Health Maintenance Due Date Last Done Comments DTaP,Tdap,and Td Vaccines (1 - Tdap) 1980 Pneumococcal Vaccine: 50+ Ye ars (1 of 1 - PCV) 2011 Zoster Vaccines (1 of 2) 2011 Cholesterol Screening (Lipid Panel) 04/28/2022 Colorectal Cancer Screening: Colonoscopy 04/28/2022 HIV Screening 04/28/2022 Hepatitis C Screening 04/28/2022 Social Influencers of Health Screening 04/28/2022 COVID-19 Vaccine ( - 2023-2 5 season) 2024 Depression Screening 05/19/2024 Influenza Vaccine (#1) 2025 RSV Immunization Adult Patie nts (1 - 1-dose 75+ series) 2036 HIB Vaccines Aged Out No longer eligi ble based on patient's age to complete this topic HPV Vaccines Aged Out No longer eligi ble based on patient's age to complete this topic Hepatitis A Vaccines Aged Out No long er eligible based on patient's age to complete this topic Hepatitis B Vaccines Aged Out No long er eligible based on patient's age to complete this topic IPV Vaccines Aged Out No longer eligi ble based on patient's age to complete this topic MMR Vaccines Aged Out No longer eligi ble based on patient's age to complete this topic Meningococcal ACWY Vaccine Aged Out N o longer eligible based on patient's age to complete this topic Meningococcal B Vaccine Aged Out No l onger eligible based on patient's age to complete this topic RSV Immunization Patients Un miryam 20 months Aged Out No longer eligible b ased on patient's age to complete this topic Varicella Vaccines Aged Out No longer eligible based on patient's age to complete this topic Insurance [facility] Care Teams Precinct I Police Sergeant Relationship Specialty Start Date End Date Jhonatan Owusu MD PCP - General 08/18/07
== END 2025-01-05 14:25 | disposition home or self-care (01) ==
LOC: HO.HMCFM 11:55
PROVIDERS: PCP Nurse Practitioner Family; Visit Provider Nurse Practitioner Family
DX: Z00.00 Encounter for general adult medical examination without abnormal findings (principal); I51.9 Heart disease, unspecified; I38 Endocarditis, valve unspecified; E55.9 Vitamin D deficiency, unspecified; J30.2 Other seasonal allergic rhinitis; K22.0 Achalasia of cardia; K21.9 Gastro-esophageal reflux disease without esophagitis; Z28.21 Immunization not carried out because of patient refusal

== ENCOUNTER → 2025-01-05 11:54 | Outpatient (BNVA) | payer OTHER, SELFPAY | PROVIDERS: PCP Nurse Practitioner Family; Visit Provider Nurse Practitioner Family | DX: Z00.00 Encounter for general adult medical examination without abnormal findings (principal); K21.9 Gastro-esophageal reflux disease without esophagitis; E78.5 Hyperlipidemia, unspecified; E55.9 Vitamin D deficiency, unspecified; I25.10 Atherosclerotic heart disease of native coronary artery without angina pectoris; I51.9 Heart disease, unspecified; I38 Endocarditis, valve unspecified; J30.2 Other seasonal allergic rhinitis; K22.0 Achalasia of cardia | CPT/HCPCS: 96127 ==

== ENCOUNTER 2025-01-06 09:28 | Outpatient (REF) | payer OTHER, SELFPAY ==
--- OUTSIDE RECORDS SUMMARY | 2024-01-14 09:00 | XMS_ITS ---
Author Organization [facility] Address [address] [place] [address] Care Team Providers Care Burnt Lime Drawer Name Role Phone Char Chase Primary Care Provider Maulik Kaur Jr [phone] REASON FOR VISIT dysphagia,diarrhea, LLQ pain Problems Problem Type SNOMED Code ICD Code Onset Dates Problem Status W/U Status Risk Notes Problem Gastritis (9339284) Gastritis (K29.70) Active confirmed Encounters Encounter Location Date Provider Diagnosis [facility] Outpatient [address] [place] [id number] 01/14/2024 Maulik Portillo Jr Gastritis K29.70 ; [...] Name:Maulik ponce Jr, 02/17/2025 03:15:00 PM, [address], [address], [place], [address], Progress Notes * RAHEEM SALAMANCADOB:1960 (64 yo M)Acc No.[id number]:01/14/2024 EGD and COL/MAC Patient: RAHEEM BRANCH Provider: Brendon Portillo MD :1960 A ge:63 Y S ex:Male Date:01/14/2024 Address:[address] [place] [address], [id number] Pcp:Char Chase Subjective: * Chief Complaints: * 1 . dysphagia,diarrhea, LLQ pain. * Medical History: Objective: * Vitals: Assessment: * Assessment: 1. G astritis - K29.70 (Primary) 2 . C olon polyps - K63.5 3 . D iarrhea - R19.7 4 . O ther dysphagia - R13.19 Plan: * Treatment: * Procedure Codes: 4 5380 COLONOSCOPY AND BIOPSY, [address]6871 UPPER GI ENDOSCOPY, BIOPSY * * The named appointment provid er may or may not be the originator of this progress note, and it is not deemed complete until electronically signed by the appointment provider. Sign off status: Pending * Provider: Brendon Portillo MD Date: 01/14/2024 Generated for Holly chappell/Yokasta/Allynitting on: 0 01/06/2025 10:40 AM EDT
--- OUTSIDE RECORDS SUMMARY | 2025-01-06 10:40 | XMS_ITS | Clinical Summary ---
Author Organization [facility] [employer] Address [address] [place] [address] Phone Care Team Providers Care Ceramics Test Engineer Name Role Phone Jhonatan Owusu MD Primary Care Provider Surgical History Surgery Date Site/Laterality Comments OTHER SURGICAL HISTORY 2014 PROCEDURE: HISTORY OTHER; COMMENT: MITRAL VALVE REPAIR WITH MAZE OTHER SURGICAL HISTORY 12/2009 PROCEDURE: HISTORY OTHER; COMMENT: VERTEBROPLASTY OTHER SURGICAL HISTORY 2007 PROCEDURE: HISTORY OTHER; COMMENT: COLOSTOMY Medical History Medical History Date Comments Seizure (CMS/HCC V24, CMS/HCC V28) DX:Seizure ([facility]) Diverticulitis DX:Diverticuliti s GERD without esophagitis DX:GERD [...] patient's age to complete this topic Insurance [facility] [employer] Care Teams Ceramics Test Engineer Relationship Specialty Start Date End Date Jhonatan Owusu MD PCP - General 08/18/07
[2025-01-06 13:21] LABS: Hematocrit 39.7 % (42.0-52.0); Hemoglobin 14.1 g/dl (14.0-18.0); Mean Corpuscular HGB Conc 35.5 g/dl (31.0-36.0); Mean Corpuscular Hemoglobin 37.8 pg (27.0-33.0); Mean Corpuscular Volume 106.4 fL (80.0-98.0); NRBC Abs Auto 0.000 X10*3/uL (0.0-0.012); NRBC Pct Auto 0.0 /100WBC (0.0-0.2); Platelet Count 187 X10*3/uL (160-400); Red Blood Count 3.73 X10*6/uL (4.60-5.80); White Blood Count 4.3 X10*3/uL (4.8-10.8)
[2025-01-06 13:39] LABS: Alanine Aminotransferase 31 U/L (0-40); Albumin Level 4.1 g/dL (3.5-5.0); Alkaline Phosphatase 61 U/L (39-117); Anion Gap 14 (12-20); Aspartate Amino Transferase 46 U/L (5-37); Blood Urea Nitrogen 3 mg/dL (9-16); Calcium 8.8 mg/dL (8.4-10.2); Carbon Dioxide 26 mmol/L (22-29); Chloride 99 mmol/L (96-108); Cholesterol 171 mg/dL (<200); Estimated Glomerular Filt Rate > 60; HDL Cholesterol 51 mg/dL (>40); Potassium 4.2 mmol/L (3.3-5.1); Sodium 135 mmol/L (135-145); Total Protein 6.7 g/dL (6.5-8.0); Triglycerides 142 mg/dL (<150)
[2025-01-06 14:00] LABS: Hemoglobin A1C 117.0549 umol/L; Total Hemoglobin (HGBA1C) 3656.8178 umol/L
[2025-01-06 14:18] LABS: Folate < 2.2 ng/mL (> or = 4.0); Vitamin B12 211 pg/mL (200-900)
== END 2025-01-06 09:29 | disposition home or self-care (01) ==
LOC: HO.HMGCLDS 09:28
PROVIDERS: PCP Nurse Practitioner Family; Visit Provider Nurse Practitioner Family
DX: Z00.00 Encounter for general adult medical examination without abnormal findings (principal); Z12.5 Encounter for screening for malignant neoplasm of prostate; Z13.6 Encounter for screening for cardiovascular disorders
CPT/HCPCS: 36415; 80053; 80061; 82306; 82607; 82746; 83036; 84153; 84443; 85027

== ENCOUNTER 2025-01-14 08:24 | Outpatient (AMB) | payer OTHER, SELFPAY ==
--- OUTSIDE RECORDS SUMMARY | 2024-01-14 09:00 | XMS_ITS ---
Author Organization [facility] Address [address] [place] [address] Care Team Providers Care Parts Inspector Name Role Phone Char Chase Primary Care Provider Maulik Kaur Jr REASON FOR VISIT dysphagia,diarrhea, LLQ pain Problems Problem Type SNOMED Code ICD Code Onset Dates Problem Status W/U Status Risk Notes Problem Gastritis (6579213) Gastritis (K29.70) Active confirmed Encounters Encounter Location Date Provider Diagnosis [facility] Outpatient [address] [place] [id number] 01/14/2024 Maulik Portillo Jr Gastritis K29.70 ; [...] Name:Maulik ponce Jr, 02/17/2025 03:15:00 PM, [address], [address], [place], [address], Progress Notes * RAHEEM SALAMANCADOB:1960 (64 yo M)Acc No.[id number]:01/14/2024 EGD and COL/MAC Patient: RAHEEM BRANCH Provider: Brendon Portillo MD :1960 A ge:63 Y S ex:Male Date:01/14/2024 Address:[address] [place] [address], [id number] Pcp:Char Chase Subjective: * Chief Complaints: * 1 . dysphagia,diarrhea, LLQ pain. * Medical History: Objective: * Vitals: Assessment: * Assessment: 1. G astritis - K29.70 (Primary) 2 . C olon polyps - K63.5 3 . D iarrhea - R19.7 4 . O ther dysphagia - R13.19 Plan: * Treatment: * Procedure Codes: 4 5380 COLONOSCOPY AND BIOPSY, [address]3065 UPPER GI ENDOSCOPY, BIOPSY * * The named appointment provid er may or may not be the originator of this progress note, and it is not deemed complete until electronically signed by the appointment provider. Sign off status: Pending * Provider: Brendon Portillo MD Date: 01/14/2024 Generated for Holly chappell/Yokasta/Allynitting on: 01/14/2025 09:08 AM EDT
--- OUTSIDE RECORDS SUMMARY | 2024-08-02 05:40 | XMS_ITS ---
Author Organization [facility] Address [address] [place] [id number] Care Team Providers Care Business System Consultant Name Role Phone Char Chase Primary Care Provider Maulik Kaur Jr [phone] REASON FOR VISIT Patient presents today for a esophagitis Encounters Encounter Location Date Provider Diagnosis [facility] [address] [facility] [address] [place] [id number] 08/02/2024 Maulik Portillo Jr Plan Of Treatment Next Appt Details Provider Name:Maulik ponce Jr, 02/17/2025 03:15:00 PM, [address], [address], [place], [address], Progress Notes * RAHEEM SALAMANCADOB:1960 (64 yo M)Acc No.[id number]:08/02/2024 Progress Notes Patient: RAHEEM BRANCH Provider: Brendon Portillo MD :1960 A ge:64 Y S ex:Male Date:08/02/2024 [address] [id number] Pcp:Char Chase Subjective: * Chief Complaints: * 1 . Patient presents today for a esophagitis. * Medical History: Objective: * Vitals: Assessment: Plan: * Treatment: * * The named appointment provid er may or may not be the originator of this progress note, and it is not deemed complete until electronically signed by the appointment provider. Sign off status: Pending * Provider: Brendon Portillo MD Date: 0 08/02/2024 Generated for Holly chappell/Yokasta/Allynitting on: 0 01/14/2025 09:08 AM EDT
--- OUTSIDE RECORDS SUMMARY | 2024-11-04 09:55 | XMS_ITS ---
Author Organization [facility] Address [address] [place] [address] Care Team Providers Care Fleet Salesperson Name Role Phone Char Chase Primary Care Provider Maulik Kaur Jr REASON FOR VISIT ESOPHAGITIS Encounters Encounter Location Date Provider Diagnosis [facility] [address] [place] [address] 11/04/2024 Maulik Portillo Jr Plan Of Treatment Next Appt Details Provider Name:Maulik ponce Jr, 02/17/2025 03:15:00 PM, [address], [address], [place], [address], Progress Notes * RAHEEM SALAMANCADOB:1960 (64 yo M)Acc No.[id number]:11/04/2024 Progress Notes Patient: RAHEEM BRANCH Provider: Brendon Portillo MD :1960 A ge:64 Y S ex:Male Date:11/04/2024 Address:[address] [place] [address] [id number] Pcp:Char Chase Subjective: * Chief Complaints: * 1 . ESOPHAGITIS. * Medical History: Objective: * Vitals: Assessment: Plan: * Treatment: * * The named appointment provid er may or may not be the originator of this progress note, and it is not deemed complete until electronically signed by the appointment provider. Sign off status: Pending * Provider: Brendon Portillo MD Date: 0 11/04/2024 Generated for Holly chappell/Yokasta/Richar on: 0 01/14/2025 09:08 AM NATALIO
--- NOTE | 2025-01-14 08:42 | A.OFFPC_ITS ---
Intake Visit Reasons: review labs via telehealth Intake Note: Juan M presents for a telehealth appointment to go over his recent lab results. Allergies bee pollen (BEE STINGS) Allergy (Intermediate, Verified 01/14/25 16:13) SWELLING, rash Sulfa (Sulfonamide Antibiotics) (SULFA (SULFONAMIDE ANTIBIOTICS)) Allergy (Intermediate, Verified 01/14/25 16:13) rash Medication List - Last Reconciled 01/14/25 by Char Chase, [facility]- aspirin 81 mg PO DAILY metoprolol succinate ER 25 mg PO DAILY omeprazole 20 mg PO DAILY Tobacco use date assessed: 01/14/25 Dental Screening Dental Screen Date: 01/14/25 Did you have a dental visit in the last 12 months?: No Did you have a dental problem in the last 6 months where you did not have access to dental care?: No Was dental information given to patient?: Patient declined HPI HPI Comments History of Present Illness Details 64-year-old male with GERD, hyperlipidem ia, vitamin-D deficiency, CAD, seasonal allergies, gastritis, colonic polyps Surgery: 2014 open heart surgery, colon surgery Health Maintenance: colon/egd 01/15/24 active esophagitis, tubular adenoma, Chronic inactive duodenitis Dr Portillo Tdap declined Wears Cheaters, not UTD on eye exam; declined referral today Specialists: GI Cards History of Present Illness - The patient is a 64-year-old male pres enting with the need to review recent laboratory results. - Notable worsening of previously diagno sed anemia from last year. - Folate deficiency present - Vitamin D deficiency is noted. - low levels of BUN, - AST elevation observed - Denies anorexia, etoh use other than o ccasional. Does have chronic GI issues. FU with GI scheduled next month. Assessment and Plan 1. Anemia - Further assessment needed for worsenin g condition. - Await Dr. Portillo's evaluation. Labs to be faxed to him. 2. Folate deficiency - Start folic acid supplement 1 mg QD - Potential endoscopic evaluation, pendi ng Dr. Portillo's insights. 3. Vitamin D deficiency - Initiate vitamin D supplementation. 4. Abnormal renal function (low BUN) - Monitor renal function. - Possible nephrology consult post Dr. Rody morales's review, per pts request. 5. Elevated AST - Continue liver monitoring. - Further guidance after Dr. Portillo's assessment. Advised to let me know how the GI consult goes and update me. Consider Heme consult. Patient was given time to ask questions. All questions were answered to their satisfaction. Telehealth Attestation I attest that this e-visit was conducted via telecommunication methods, and all documentations are accurate reflections of the conversation. The patient has been explained that this is an interactive (audio/video) telehealth encounter and what that consists of. The patient understands and wishes to proceed. [employer] platform was used. Total time spent caring for the patient today was 21 minutes. This includes time spent before the visit reviewing the chart, time spent during the visit, and time spent after the visit on documentation, reviewing laboratory results, diagnostic imaging, medications, performing a medically necessary evaluation, counseling on diagnoses, care coordination, ordering appropriate tests, ordering appropriate medications, review of tests performed by other providers, reporting test results with the patient, communication with other healthcare providers. [facility] Medical History (Updated 01/14/25 @ 16:24 by Char Chase [facility]) Achalasia of cardia Cough GERD (gastroesophageal reflux disease) GI disease History of diverticulitis History of tachycardia Hx of valvular heart disease PND (post-nasal drip) Seasonal allergies Surgical History (Updated 01/05/25 @ 12:27 by TANVIR SparrowTOI) History of colon surgery History of colostomy reversal (~2008) History of esophagogastroduodenoscopy (EGD) History of open heart surgery Hx of colonoscopy (~12/2023) Family History Father Diabetes Mother Thyroid disease Social History (Updated 01/14/25 @ 15:57 by Ana Tai MA) Housing: House Are you a primary direct care professional to a significant other at home: No Do you presently have visiting nurse or other home services: No Alcohol intake: current Alcohol intake frequency: holidays/special occasions only Patient Tobacco Use Status: Never used Tobacco e-Cigarette/Vaping Use: Never Used Use of substances other than those prescribed or required for medical reasons: No service: No Current occupational status: employed 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 Juan M Cano, Jasmyn Crump, Ga Cabral and colleagues, with an educational cesar from [employer]. Physical exam (Primary Care) Tobacco/Smoking Status: Tobacco use Status Tobacco use date assessed 01/14/25 01/14/25 15:58 Patient Tobacco Use Status Never used Tobacco 01/14/25 15:57 e-Cigarette/Vaping Use Never Used 01/14/25 15:57 Thrive Assessment: Date of Thrive Assessment Date Thrive assessed 01/05/25 01/14/25 08:42 Telehealth Telehealth Telehealth Platform: [employer] Location of provider rendering services: practice address Location of patient: address on file Patient Identification confirmed using: Name, : Yes Telehealth method: voice only Patient verbally consented to treatment: Yes Patient verbally consented to billing insurance company: Yes Patient informed of any privacy concerns related to visit: Yes Minutes spent on Phone/Video with Pt.: 10 Results Reviewed Results Reviewed: Name: Juan M Tracy Age/Sex: 64/M : 1960 Unit#: [id number] Attend Dr: Char Chase Re01/06/25 Status: DEP REF Location: [facility] Disch: SPEC : [id number] GABRIELA: 01/06/25 STATUS: COMP REQ : [id number] RECD: 01/06/25-[address]: Char Chase COMP: 01/06/25 ENTERED: 01/06/[address]: ORDERED: CBC No Diff Test Result Flag Reference WBC 4.3 L 4.8-10.8 X10*3/uL RBC 3.73 L 4.60-5.80 X10*6/uL HGB 14.1 14.0-18.0 g/dl HCT 39.7 L 42.0-52.0 % MCV 106.4 H 80.0-98.0 fL MCH 37.8 H 27.0-33.0 pg MCHC 35.5 31.0-36.0 g/dl RDW 13.5 11.0-16.0 % PLT 187 160-400 X10*3/uL MPV 9.2 L 9.4-12.4 fL NRBC Pct Auto 0.0 0.0-0.2 /100WBC NRBC Abs Auto 0.000 0.0-0.012 X10*3/uL Sodium 135 135-145 mmol/L Potassium 4.2 3.3-5.1 mmol/L CL 99 96-108 mmol/L CO2 26 22-29 mmol/L Gap 14 12-20 BUN 3 L 9-16 mg/dL Creat 0.65 0.5-1.4 mg/dL eGFR > 60 Chronic Kidney Disease: Estimated GFR < 60 mL/min/1.73m2 Severe Kidney Disease: Estimated GFR < 15 mL/min/1.73m2 Glucose, Random 87 60-115 mg/dL CA 8.8 8.4-10.2 mg/dL Total Bili 0.5 0.0-1.0 mg/dL AST (GOT) 46 H 5-37 U/L ALT (GPT) 31 0-40 U/L Protein, Total 6.7 6.5-8.0 g/dL Alb 4.1 3.5-5.0 g/dL Triglyceride 142 <150 mg/dL Desirable Triglyceride: less than 150 mg/dL Borderline High Triglyceride 150-199 mg/dL High Triglyceride: 200-499 mg/dL Very High Triglyceride: greater than or equal to 5OO mg/dL Cholesterol 171 <200 mg/dL Desirable Cholesterol: less than 200 mg/dL Borderline High Cholesterol: 200-239 mg/dL High Cholesterol: greater than 239 mg/dL LDL Calculated 92 <100 mg/dL Desirable LDL: less than 100 mg/dL Near Optimal/Above Optimal LDL: 110-129 mg/dL Borderline High LDL: 130-159 mg/dL High LDL: 160-189 mg/dL Very High LDL: greater than or equal to 190 mg/dL HDL 51 >40 mg/dL Desirable HDL: greater than 40 mg/dL Note: This HDL assay may give artificially low results in patients with liver disease. Alk Phos 61 39-117 U/L Vitamin D 25-OH 25.6 L >30 ng/mL Health Based Reference Values* < 20 ng/mL Deficient 20-30 ng/mL Insufficient > 30 ng/mL Sufficient *Toya MCKEON. N Engl J Med. 2007;357:266-280 There is no well-established upper level of normal vitamin D levels. Some laboratories use 50 ng/mL as an upper limit of normal. However, toxicity is patient-dependent and may occur at any level. Careful correlation with the patient's presentation is necessary and, if there is concern for vitamin D toxicity, treatment should be considered irrespective of the serum level. Care must be taken in interpreting Vitamin D results from different laboratories and methodologies. Published d neo demonstrated that results from patients undergoing hemodialysis may show a negative bias when tested with various automated 25-OH vitamin D assays when compared to LC-MS/MS. When testing samples from patients whose predominant form of Vitamin D is Vitamin D2, such as patients receiving Vitamin D2 supplementation, results that are subtherapeutic should be confirmed with another method such as LC-MS/MS. TSH 0.78 0.32-4.0 uIU/mL Coding Level of Care Code Tele Est Pt Level 3 (91215) Complex EM visit Add On G2211 Diagnoses Encounter to discuss test results Z71.2 Vitamin D deficiency E55.9 Anemia due to folic acid deficiency, unspecified deficiency type D52.9 Folate deficiency anemia type: unspecified folate deficiency Low BUN R79.89 Assessment & Plan Assessment & Plan (1) Encounter to discuss test results: Code(s): Z71.2 - Person consulting for explanation of examination or test findings (2) Vitamin D deficiency: Code(s): E55.9 - Vitamin D deficiency, unspecified Category: Medical (3) Folate deficiency anemia: Code(s): D52.9 - Folate deficiency anemia, unspecified Category: Medical Qualifiers: Folate deficiency anemia type: unspecified folate deficiency Qualified Code(s): D52.9 - Folate deficiency anemia, unspecified (4) Low BUN: Code(s): R79.89 - Other specified abnormal findings of blood chemistry Category: Medical Plan . Medications: New folic acid 1 mg PO DAILY 90 tabs 2RF cholecalciferol (vitamin D3) 50 mcg PO DAILY 90 caps 2RF
--- OUTSIDE RECORDS SUMMARY | 2025-01-14 09:08 | XMS_ITS | Patient Health Record ---
Author Organization [facility] Address [address] [place] [address] Care Team Providers Care Senior Mainframe Programmer Analyst Name Role Phone Char Chase Primary Care Provider Maulik Kaur Jr Unavailable Allergies No Known Allergies Reason For Referral No Information Medications Medication SIG (Take, Route, Frequency, Duration) Notes Start Date End Date Status MiraLax (colon prep) 17 GM/SCOOP mixed with Gatorade or Crystal Light Orally begin at 5:00 p.m. the day before the procedure for 1 day 12/18/2023 Active Omeprazole 20 MG 1 capsule 30 minutes before morning meal Orally Once a day for 30 day(s) 01/28/2024 Active Omeprazole 20 MG 1 capsule 30 minutes before morning meal Orally Once a day for 90 day(s) 01/15/2024 Active Aspirin 81 81 MG 1 tablet Orally Once a day for 30 day(s) Active Metoprolol Succinate 25 MG 1 capsule Ora lly Once a day for 30 day(s) Active Immunizations Vaccine Route Administration Date Status Comme nts Influenza Unknown 12/18/2023 Refused Social History Tobacco Use: Social History Observation Description Date Details (start date - stop date) Never Smoker NA - NA Tobacco Use/Smoking Question Answer Notes Patient is a nonsmoker Alcohol Screen Question Answer Notes Did you have a drink contain ing alcohol in the past year? Yes How often did you have a dri nk containing alcohol in the past year? Monthly or less (1 point) How many drinks did you have on a typical day when you were drinking in the past year? 1 or 2 drinks (0 point) How often did you have 6 or more drinks on one occasion in the past year? Never (0 point) Points 1 Interpretation Negative Problems Problem Type SNOMED Code ICD Code Onset Dates Problem Status W/U Status Risk Notes Problem 32311193 Other dysphagia (R13.19) Active confirmed Problem Gastritis (0105692) Gastritis (K29.70) Active confirmed Problem 92406507 Diarrhea, unspecified type (R19.7) Active confirmed Problem 594593160 LLQ pain (R10.32) Active confirmed Encounters Encounter Location Date Provider Diagnosis [facility] [address] [place] [address] 01/15/2024 Maulik Portillo Jr Test [place] [address] 01/28/2024 Maulik Portillo Jr [facility] [address] [place] [address] 01/28/2024 Maulik Portillo Jr [facility] [address] [place] [phone] 11/04/2024 Maulik Portillo Jr Plan Of Treatment Future Test Test Name Order Date UPPER GI ENDOSCOPY 12/18/2023 COLONOSCOPY 12/18/2023 Next Appt Details Provider Name:Maulik ponce Jr, 02/17/2025 03:15:00 PM, [address], [address], [place], [address], Insurance Providers Payer Name Payer Address Payer Phone Subscriber Number Group Number Insured Name Patient Relationship to Insured Coverage Start Date Coverage End Date [employer] [place] [address] [address] [place] [address] [id number] RAHEEM SALAMANCA Self - patient is the insured Medical (General) History Medical History History ICD Code Gastroesophageal reflux disease, EGD wit h balloon dilation 2019 Colonoscopy ?5 years ago per patient Atrial flutter status post Maze procedur e Past history of alcohol abuse Surgical History Surgery Date(Month/Year) Mitral valve repair/annuloplasty and redd e procedure 10/2014 Repair of colovesical fistula, colostomy , subsequent takedown
--- OUTSIDE RECORDS SUMMARY | 2025-01-14 09:08 | XMS_ITS | Clinical Summary ---
Author Organization [facility] [employer] Address [address] [place] [address] Phone Care Team Providers Care Balancer Name Role Phone Jhonatan Owusu MD Primary Care Provider [phone] Surgical History Surgery Date Site/Laterality Comments OTHER SURGICAL HISTORY 2014 PROCEDURE: HISTORY OTHER; COMMENT: MITRAL VALVE REPAIR WITH MAZE OTHER SURGICAL HISTORY 12/2009 PROCEDURE: HISTORY OTHER; COMMENT: VERTEBROPLASTY OTHER SURGICAL HISTORY 2007 PROCEDURE: HISTORY OTHER; COMMENT: COLOSTOMY Medical History Medical History Date Comments Seizure (CMS/HCC V24, CMS/HCC V28) DX:Seizure ([facility] Diverticulitis DX:Diverticuliti s GERD without esophagitis DX:GERD [...] patient's age to complete this topic Insurance [facility] Care Teams Balancer Relationship Specialty Start Date End Date Jhonatan Owusu MD PCP - General 08/18/07
== END 2025-01-14 16:25 | disposition home or self-care (01) ==
LOC: HO.HMCFM 08:24
PROVIDERS: PCP Nurse Practitioner Family; Visit Provider Nurse Practitioner Family
DX: E55.9 Vitamin D deficiency, unspecified (principal); D52.9 Folate deficiency anemia, unspecified; R79.89 Other specified abnormal findings of blood chemistry; Z71.2 Person consulting for explanation of examination or test findings